=== PATIENT | female | born 1990 | race Caucasian/White ===

== ENCOUNTER 2016-10-28 20:31 | Emergency (ER) ==
[2016-10-28 21:32] LABS: URINE SOURCE CLEAN CATCH
[2016-10-28] MEDS ORDERED: PHENERGAN IM ONE ×2 (21:46→22:57)
[2016-10-28] MEDS ORDERED: DILAUDID IM ONE ×2 (21:46→22:57)
[2016-10-28 21:54] LABS: BILIRUBIN URINE NEGATIVE (NEGATIVE); BLOOD URINE NEGATIVE (NEGATIVE); COLOR YELLOW; GLUCOSE URINE NEGATIVE (NEGATIVE); LEUKOCYTES URINE 1+ (NEGATIVE); NITRITE URINE NEGATIVE (NEGATIVE); PROTEIN URINE NEGATIVE (NEGATIVE); UROBILINOGEN URINE NORMAL
[2016-10-28 21:59] LABS: MANUAL DIFF NEEDED? NO
[2016-10-28 21:59] LABS: CLARITY CLEAR (CLEAR); URINE CULTURE PL NEEDED? YES; URINE EPITHELIAL CELLS <10 /HPF (<10); URINE RBC <10 /HPF (<10)
[2016-10-28 22:08] LABS: EOS# 0.51 X1000 (0.0-0.7); EOS% 4.6 % (0.0-10.0); HEMATOCRIT 38.7 % (37.0-47.0); HEMOGLOBIN 12.5 g/dL (12.0-16.0); IMM GRAN# 0.02 X1000 (0.0-0.04); IMM GRAN% 0.2 % (0.0-0.5); LYMPH% 32.8 % (20.5-51.1); MCH 27.8 PG (27-31); MCHC 32.3 g/dL (33-37); MCV 86.2 FL (81-99); MONO# 0.79 X1000 (0.11-0.59); MONO% 7.2 % (1.7-9.3); MPV 10.8 FL (7.4-10.4); NEUT% 54.2 % (42.2-75.2); PLT 299 X1000 (130-400); RBC 4.49 XMIL (4.2-5.4)
[2016-10-28 22:20] LABS: AGAP 9; ALBUMIN 4.1 g/dL (3.5-5.0); ALKALINE PHOSPHATASE 45 U/L (32-104); AMYLASE 55 U/L (20-200); BUN 10 mg/dL (8-22); CALCIUM 9.1 mg/dL (8.8-10.2); CHLORIDE 105 mmol/L (98-107); COSMO 277; GOT 15 U/L (10-30); GPT 21 U/L (10-36); LIPASE 28 U/L (13-60); POTASSIUM 3.6 mmol/L (3.5-5.1); SODIUM 139 mmol/L (136-145); TCO2 25 mmol/L (25-35); TOTAL BILIRUBIN < 0.15 mg/dL (0.20-1.00); TOTAL PROTEIN 6.7 g/dL (6.3-8.3)
[2016-10-28 23:00] VITALS: BP 102/68
--- NOTE | 2016-10-28 23:00 | PROVIDER DOCUMENTATION ---
HPI-Abdominal Pain/GI Problem - General Chief Complaint: Abdominal Pain Stated Complaint: ABD PAIN Time Seen by Provider: 10/28/16 21:38 Source: patient Allergies/Adverse Reactions: Patient Allergies Allergy/AdvReac Type Severity Reaction Status Date / Time azithromycin [From Zithromax] Allergy SWELLING Verified 10/28/16 20:49 Iodinated Contrast Media - Allergy Unknown Verified 10/28/16 20:49 Oral and [IV Dye] Latex, Natural Rubber Allergy SWELLING Verified 10/28/16 20:49 metronidazole [From Flagyl] Allergy SWELLING Verified 10/28/16 20:49 Penicillins Allergy SWELLING Verified 10/28/16 20:49 Home Medications: Home Medication List Medication Instructions Recorded Confirmed Last Taken Type Escitalopram [Lexapro] 30 mg PO DAILY 10/28/16 10/28/16 Unknown History Ketorolac [Toradol] 10 mg PO Q8H PRN PRN #14 tablet 10/28/16 Unknown Rx Ondansetron Odt [Zofran 8Mg Odt] 8 mg PO Q8H PRN PRN #20 tablet 10/28/16 Unknown Rx - History of Present Illness-ABD Nature of Presenting Problems: 26 yof c/o LLQ pain due to ovarian cyst. Unable to control pain at home. Abdominal Pain Onset Location: reports: LLQ Pain Radiation: reports: no radiation Quality of Pain: reports: none Severity in ED: reports: moderate Onset/Duration: reports: other (2 months) Timing: reports: still present, getting worse Activities at Onset: reports: none Exposure to sick contacts?: No Modifying Factors: improves with: nothing Associated Symptoms: reports: nausea, vomiting Last BM: this morning Dark Stools Present?: reports: none noticed Rectal Bleeding: reports: none Rectal Pain: reports: none # of Vomiting Episodes: 5 Bruising or Bleeding Gums?: No Similar Symptoms Previously?: No Review of Systems - Adult - REVIEW OF SYSTEMS - ADULT Constitutional: reports: see HPI. denies: no symptoms reported, chills, fever, fatique, night sweats, weight gain, weight loss, other Eyes: reports: no symptoms reported. denies: see HPI, discharge, dry eyes, decreased vision, blurred vision, double vision, eye pain, redness, other Ears, Nose, Mouth & Throat: reports: no symptoms reported. denies: see HPI, ear discharge, ear pain, hearing loss, tinnitus, epistaxis, sinus problem, nose pain, loose teeth, mouth/dental pain, mouth swelling, hoarseness, throat pain, throat swelling, other Cardiovascular: reports: no symptoms reported. denies: see HPI, chest pain, edema, heart murmur, irregular heart rate, orthopnea, palpitations, poor circulation, PND, syncope, other Respiratory: reports: no symptoms reported. denies: see HPI, chronic cough, cough, dyspnea on exertion, excessive sputum production, hemoptysis, pleurisy, shortness of breath, wheezing, other Gastrointestinal: reports: see HPI, abdominal pain, nausea, vomiting. denies: no symptoms reported, hematemesis, constipation, diarrhea, difficulty swallowing , frequent heartburn, poor appetite, rectal bleeding, other Genitourinary: reports: no symptoms reported. denies: see HPI, dysuria, discharge, frequency, flank pain, frequent UTI's, hematuria, hesitency, incontinence, urinary retention, urgency, other Musculoskeletal: reports: no symptoms reported. denies: see HPI, bone pain, back pain, frequent leg cramps, joint pain, joint swelling, muscle aches, muscle weakness, neck pain, other Integumentary: reports: no symptoms reported. denies: see HPI, hives, hair loss , itching, mole changes, nail changes, rash, skin sores/ulcer, skin thickening, other Neurological: reports: no symptoms reported. denies: see HPI, ataxia, dizziness /vertigo, headache/migraines, loss of balance, numbness, paresthesia, seizure, slurred speech, syncope, tremors, other All Other Systems: Reviewed and Negative Past History - Adult - PAST MEDICAL HISTORY-ADULT Review of Records: reports: Old Records Reviewed, Nursing Assessment Review, Medications Reviewed, Social history reviewed & non-contributory. Physical Exam-General - PHYSICAL EXAM-ADULT Initial Vital Signs Reviewed: Yes - CONSTITUTIONAL General Appearance: appears well, alert, mild distress (due to pain). negative : no apparent distress, moderate distress, severe distress, cachetic, obese, thin, anxious, lethargic, slow to respond, obtunded, combative, other - EYES Eyes: PERRL/EOMI, pink conjunctivae. negative: fundi clear, no AV nicking, anisocoria, conjuctival exudate, EOM palsy, meningismus, pale conjunctivae, photophobia, sclera injected, scleral icterus, subconjunctival hemorrhage, sunken eyes, other - HEAD, EARS, NOSE, MOUTH & THROAT HENMT: normocephalic/atraumatic, moist mucous membranes, normal ENT inspection, TMs normal, pharynx normal. negative: angioedema, dental decay, hearing deficit , pharyngeal erythema, tonsillar exudate, TM abnormal, TM obscurred by cerumen, frontal tenderness, maxillary tenderness, other - NECK Neck: non-tender, full range of motion, supple, normal inspection. negative: Brudzinski's sign, carotid bruit, C-spine tenderness, limited range of motion, lymphadenopathy, meningismus, trachial deviation, tender lateral, tender midline , thyromegaly, other - RESPIRATORY Respiratory: chest non-tender, lungs clear, normal breath sounds, no pleuratic chest pain, no respiratory distress, no accessory muscle use. negative: respiratory distress, decreased breath sounds, accessory muscle use, crackles, rales, rhonchi, stridor, wheezing, dull on percussion, prolonged expiration, pain on inspiration, plerual rub, retractions, splinting, decreased rate, increased rate, crepitus, other - CARDIOVASCULAR Cardiovascular: normal peripheral pulses, regular rate, rhythm, no edema, no gallop, no JVD, no murmur. negative: JVD, bradycardia, tachycardia, diastolic murmur, systolic murmur, gallop/S3, gallop/S4, extra beats, friction rub, irregularly irregular, PMI displaced laterally, other - CHEST (BREASTS) Chest/Breast: deferred - GASTROINTESTINAL (ABDOMEN) Abdominal Exam: normal bowel sounds, soft, no organomegaly, no pulsatile mass, tenderness. negative: non tender, abdominal bruit, abnormal bowel sounds, distended, guarding, rigid, rebound, hernia, mass, hepatomegaly, spleenomegaly, McBurney's point tenderness, Atwood's sign, obturator sign, prominent aortic pulsations, psoas, Rovsing's sign, other - GENITOURINARY Female Genitalia/Pelvic Exam: deferred - LYMPHATIC Lymphatic: no adenopathy. negative: axilla node tender, cervical node tenderness, inguinal node tender, enlargement, striations, streaking, other - MUSCULOSKELETAL Back Exam: normal inspection, no CVA tenderness, no vertebral tenderness. negative: CVA tenderness, decreased range of motion, ecchymosis, kyphosis, lordosis, muscle spasm, scoliosis, swelling, vertebral tenderness, other Extremity: normal range of motion, non-tender, normal gait, normal inspection, no pedal edema, no calf tenderness, normal capillary refill. negative: pelvis stable, abnormal NV exam, calf tenderness, deformity, erythema, inflammation, joint effusion, pulse deficit, pedal edema, slow capillary refill, swelling, tenderness, other - SKIN Integumentary: normal color, normal turgor - NEUROLOGIC Neurologic: grossly normal - PSYCHIATRIC Psych/Mental Status: oriented x 3 Progress - PLAN OF CARE/RESULTS Progress/Plan/Lab Results: Laboratory Tests 10/28/16 10/28/16 10/28/16 21:14 21:14 21:55 WBC RBC Hgb Hct MCV MCH MCHC RDW Std Deviation Plt Count MPV Immature Gran % (Auto) Neut % (Auto) Lymph % (Auto) Bond % (Auto) Eos % (Auto) Baso % (Auto) Immature Gran # (Auto) Neut # (Auto) Lymph # (Auto) Bond # (Auto) Eos # (Auto) Baso # (Auto) Sodium 139 Potassium 3.6 Chloride 105 Carbon Dioxide 25 Anion Gap 9 BUN 10 Creatinine 0.7 Estimated GFR/1.73 m2 > 60 BUN/Creatinine Ratio 14 Glucose 107 H Calculated Osmolality 277 Calcium 9.1 Total Bilirubin < 0.15 L AST 15 ALT 21 Alkaline Phosphatase 45 Total Protein 6.7 Albumin 4.1 Globulin 3.0 Albumin/Globulin Ratio 2.0 Amylase 55 Lipase 28 Urine Source CLEAN CATCH Urine Color YELLOW Urine Clarity CLEAR Urine pH 6.0 Ur Specific Rosie 1.020 Urine Protein NEGATIVE Urine Ketones NEGATIVE Urine Blood NEGATIVE Urine Nitrite NEGATIVE Urine Bilirubin NEGATIVE Urine Urobilinogen NORMAL Urine Microscopic RBC <10 Urine WBC 1+ A Urine Microscopic WBC 10-20 A Ur Epithelial Cells <10 Urine Bacteria 2+ Urine Glucose NEGATIVE Urine Test NEGATIVE 10/28/16 21:55 WBC 10.98 H RBC 4.49 Hgb 12.5 Hct 38.7 MCV 86.2 MCH 27.8 MCHC 32.3 L RDW Std Deviation 15.9 H Plt Count 299 MPV 10.8 H Immature Gran % (Auto) 0.2 Neut % (Auto) 54.2 Lymph % (Auto) 32.8 Bond % (Auto) 7.2 Eos % (Auto) 4.6 Baso % (Auto) 1.0 H Immature Gran # (Auto) 0.02 Neut # (Auto) 5.95 Lymph # (Auto) 3.60 H Bond # (Auto) 0.79 H Eos # (Auto) 0.51 Baso # (Auto) 0.11 Sodium Potassium Chloride Carbon Dioxide Anion Gap BUN Creatinine Estimated GFR/1.73 m2 BUN/Creatinine Ratio Glucose Calculated Osmolality Calcium Total Bilirubin AST ALT Alkaline Phosphatase Total Protein Albumin Globulin Albumin/Globulin Ratio Amylase Lipase Urine Source Urine Color Urine Clarity Urine pH Ur Specific Rosie Urine Protein Urine Ketones Urine Blood Urine Nitrite Urine Bilirubin Urine Urobilinogen Urine Microscopic RBC Urine WBC Urine Microscopic WBC Ur Epithelial Cells Urine Bacteria Urine Glucose Urine Test Orders Category Date Time Status [ED: Urine Bedside] ORDERED Care 10/28/16 20:50 Inactive AMYLASE [CHEM] Stat Lab 10/28/16 21:55 Completed CBC WITH DIFF [HEME] Stat Lab 10/28/16 21:55 Completed COMPREHENSIVE METABOLIC PANEL [CHEM] Stat Lab 10/28/16 21:55 Completed LIPASE [CHEM] Stat Lab 10/28/16 21:55 Completed TEST-URINE [PREG] Stat Lab 10/28/16 21:[address] W/POSS RFLX CULT [URINALYSIS] Stat Lab 10/28/16 21:14 Completed URINE CULTURE [RM] Routine Lab 10/28/16 22:00 Received Hydromorphone [Dilaudid] Med 10/28/16 21:46 Discontinued 1 mg IM NOW ONE Hydromorphone [Dilaudid] Med 10/28/16 22:57 Discontinued 2 mg IM NOW ONE Promethazine [Phenergan] Med 10/28/16 21:46 Discontinued 25 mg IM NOW ONE Promethazine [Phenergan] Med 10/28/16 22:57 Discontinued 25 mg IM NOW ONE Vital Signs Temp Pulse Resp BP Pulse Ox 10/28/16 23:00 97.3 F L 66 16 102/68 100 10/28/16 20:42 98.0 F 88 18 131/83 100 azithromycin [From Zithromax] Allergy (Verified 10/28/16 20:49) SWELLING Iodinated Contrast Media - Oral and [IV Dye] Allergy (Verified 10/28/16 20:49) Unknown Latex, Natural Rubber Allergy (Verified 10/28/16 20:49) SWELLING metronidazole [From Flagyl] Allergy (Verified 10/28/16 20:49) SWELLING Penicillins Allergy (Verified 10/28/16 20:49) SWELLING Escitalopram [Lexapro] 30 mg PO DAILY 10/28/16 Ketorolac [Toradol] 10 mg PO Q8H PRN PRN #14 tablet 10/28/16 Ondansetron Odt [Zofran 8Mg Odt] 8 mg PO Q8H PRN PRN #20 tablet 10/28/16 Laboratory 10/28/16 10/28/16 10/28/16 21:55 21:55 21:14 WBC 10.98 H RBC 4.49 Hgb 12.5 Hct 38.7 MCV 86.2 MCH 27.8 MCHC 32.3 L RDW Std Deviation 15.9 H Plt Count 299 MPV 10.8 H Immature Gran % (Auto) 0.2 Neut % (Auto) 54.2 Lymph % (Auto) 32.8 Bond % (Auto) 7.2 Eos % (Auto) 4.6 Baso % (Auto) 1.0 H Immature Gran # (Auto) 0.02 Neut # (Auto) 5.95 Lymph # (Auto) 3.60 H Bond # (Auto) 0.79 H Eos # (Auto) 0.51 Baso # (Auto) 0.11 Sodium 139 Potassium 3.6 Chloride 105 Carbon Dioxide 25 Anion Gap 9 BUN 10 Creatinine 0.7 Estimated GFR/1.73 m2 > 60 BUN/Creatinine Ratio 14 Glucose 107 H Calculated Osmolality 277 Calcium 9.1 Total Bilirubin < 0.15 L AST 15 ALT 21 Alkaline Phosphatase 45 Total Protein 6.7 Albumin 4.1 Globulin 3.0 Albumin/Globulin Ratio 2.0 Amylase 55 Lipase 28 Urine Source Urine Color Urine Clarity Urine pH Ur Specific Rosie Urine Protein Urine Ketones Urine Blood Urine Nitrite Urine Bilirubin Urine Urobilinogen Urine Microscopic RBC Urine WBC Urine Microscopic WBC Ur Epithelial Cells Urine Bacteria Urine Glucose Urine Test NEGATIVE 10/28/16 21:14 WBC RBC Hgb Hct MCV MCH MCHC RDW Std Deviation Plt Count MPV Immature Gran % (Auto) Neut % (Auto) Lymph % (Auto) Bond % (Auto) Eos % (Auto) Baso % (Auto) Immature Gran # (Auto) Neut # (Auto) Lymph # (Auto) Bond # (Auto) Eos # (Auto) Baso # (Auto) Sodium Potassium Chloride Carbon Dioxide Anion Gap BUN Creatinine Estimated GFR/1.73 m2 BUN/Creatinine Ratio Glucose Calculated Osmolality Calcium Total Bilirubin AST ALT Alkaline Phosphatase Total Protein Albumin Globulin Albumin/Globulin Ratio Amylase Lipase Urine Source CLEAN CATCH Urine Color YELLOW Urine Clarity CLEAR Urine pH 6.0 Ur Specific Rosie 1.020 Urine Protein NEGATIVE Urine Ketones NEGATIVE Urine Blood NEGATIVE Urine Nitrite NEGATIVE Urine Bilirubin NEGATIVE Urine Urobilinogen NORMAL Urine Microscopic RBC <10 Urine WBC 1+ A Urine Microscopic WBC 10-20 A Ur Epithelial Cells <10 Urine Bacteria 2+ Urine Glucose NEGATIVE Urine Test Departure - Departure Time of Disposition Order: 22:58 DIAGNOSIS: Ovarian cyst Qualifiers: Laterality: left Qualified Code(s): N83.202 - Unspecified ovarian cyst, left side Abdominal pain Qualifiers: Abdominal location: left lower quadrant Qualified Code(s): R10.32 - Left lower quadrant pain Disposition: HOME 01 Certified Medical Emergency: Emergent Condition: Stable Additional Instructions: ED Follow Up Instructions: You have been treated by a care provider in the Emergency Department. These instructions are being provided to you so you can have an understanding of how to care for yourself upon discharge. Upon discharge from the Emergency Department, you are responsible for making arrangements for follow-up care by a physician of your choice. Take all prescribed medications as directed. Return to the Emergency Department immediately for any new or worsening symptoms. You may call the Physician Referral phone number at [phone] to obtain a list of Physicians who are taking new patients. Prescriptions: Ketorolac [Toradol] 10 mg PO Q8H PRN PRN #14 tablet PRN Reason: Pain Ondansetron Odt [Zofran 8Mg Odt] 8 mg PO Q8H PRN PRN #20 tablet PRN Reason: Nausea Referrals: Arsenio Glass MD [STAFF PHYSICIAN] - Mario Alberto Salgado MD [STAFF PHYSICIAN] - None,PCP [Primary Care Provider] - Forms: Return to School/Parent Work Instructions: Ondansetron oral dissolving tablet, Abdominal Pain, Adult, Easy- to-Read, Ovarian Cyst, [id number], Ketorolac tablets Attestation - Physician/ EREN Attestation Patient care was provided by Advanced Practice Provider:: Yes Advanced Practice Provider:: Alfredo Benjamin Advanced Practice Provider documentation review:: The Mid-level provider documentation, treatment plan and medical decision making was reviewed by the physician who agrees with all treatment and medical decision making by the MLP. Physician Attestation - Physician Attestation I, the provider, attest to the following statement:: Alfredo Benjamin Physician documentation Attestation:: This documentation recorded by the scribe accurately reflects the service I personally performed and the decisions made by me.
== END 2016-10-28 23:44 | disposition home or self-care (01) ==
LOC: P.ED 20:31
DX: N83.202 Unspecified ovarian cyst, left side (principal); R10.32 Left lower quadrant pain; R11.2 Nausea with vomiting, unspecified; Z79.899 Other long term (current) drug therapy
CPT/HCPCS: 80053; 81001; 81025; 82150; 83690; 85025; 87088; 96372; J1170; J2550